=== PATIENT | female | born 1960 | race Caucasian/White ===

== ENCOUNTER 2017-03-24 14:03 | Emergency (ER) | payer OTHER | END 2017-03-24 20:05 | disposition other institution (70) | LOC: FER 14:03 | DX: S73.005A Unspecified dislocation of left hip, initial encounter (principal); I10 Essential (primary) hypertension; F17.200 Nicotine dependence, unspecified, uncomplicated; Z96.643 Presence of artificial hip joint, bilateral | CPT/HCPCS: 73502; J1170; J2405 ==